=== PATIENT | female | born 1930 | race Caucasian/White ===

== ENCOUNTER → 2017-09-09 | Outpatient (REF) | payer MEDICARE, OTHER ==
[~2017-09-09] MED LIST: CALC600T31 PO; COUM2.5T17 PO; GLUC750T22 PO; LUTE20CA PO; OMEG100011 PO; PERCOCET PO; VITA100066 PO; VITATAB11 PO
== END ==
LOC: M LAB REF 13:24
PROVIDERS: ATTEND Family Medicine
DX: Z85.038 Personal history of other malignant neoplasm of large intestine (principal)

== ENCOUNTER 2018-03-03 06:44 | Day surgery (SDC) | payer MEDICARE, BC, OTHER ==
[2018-03-03] MEDS: NS 1,000 ML IV (07:00)
[2018-03-03] MEDS ORDERED: SIMETHICONE 40MG/0.6ML DROPS 30ML As Ordered (07:01)
[2018-03-03] MEDS ORDERED: LIDOCAINE 2% INJ 100 MG/5 ML SDV (FOR ANES.) As Ordered (07:14)
[2018-03-03] MEDS ORDERED: PROPOFOL 200 MG/20 ML VIAL As Ordered (07:14)
== END 2018-03-03 08:35 | disposition home or self-care (01) ==
LOC: M OPP 06:44
DX: Z12.11 Encounter for screening for malignant neoplasm of colon (principal); Z85.038 Personal history of other malignant neoplasm of large intestine; Z86.010 Personal history of colon polyps; D12.3 Benign neoplasm of transverse colon; K57.30 Diverticulosis of large intestine without perforation or abscess without bleeding; Z98.0 Intestinal bypass and anastomosis status; D64.9 Anemia, unspecified; M19.90 Unspecified osteoarthritis, unspecified site; Z78.0 Asymptomatic menopausal state; Z92.21 Personal history of antineoplastic chemotherapy; Z80.8 Family history of malignant neoplasm of other organs or systems
CPT/HCPCS: 45385